=== PATIENT | male | born 1975 | race African-American/Black ===

== ENCOUNTER 2019-12-29 16:09 | Outpatient (CLI) | payer BC ==
--- NOTE | 2019-12-29 16:34 | RAD ---
LEFT KNEE: 12/29/19 Four views. HISTORY: Knee pain. Joint spaces are normally maintained. No evidence of fracture. No evidence of joint effusion. Mild de generative changes at the patellofemoral joint. IMPRESSION: Mild degenerative change. No acute process. POS: [id number]
== END 2019-12-29 16:10 | disposition home or self-care (01) ==
LOC: BICRAD 16:09
PROVIDERS: ATTEND Internal Medicine
DX: M25.562 Pain in left knee (principal); M17.12 Unilateral primary osteoarthritis, left knee

== ENCOUNTER 2020-12-13 16:18 | Outpatient (CLI) | payer BC | END 2020-12-13 16:19 | disposition home or self-care (01) | LOC: BICRAD 16:18 | PROVIDERS: ATTEND Internal Medicine | DX: M79.671 Pain in right foot (principal); M79.672 Pain in left foot ==